=== PATIENT | female | born 1935 | race Caucasian/White ===

== ENCOUNTER 2019-04-18 04:50 | Emergency (ER) | payer MEDICARE ==
[~2019-04-18] VITALS: Ht 167.6 cm; Wt 95.7 kg
[~2019-04-18 04:50] MED LIST: ADVAIR 100-501 EACH PO; ALLEGRA180 MG PO; ASPIR 8181 MG PO; ASPIRIN EC81 MG PO; CIMETIDINE400 MG PO; CLONIDINE HCL0.1 MG PO; DIOVAN HCT 1601 EAC1 PO; DIOVAN160 MG PO; FUROSEMIDE20 MG; HYDRALAZINE HCL10 MG PO; HYDROCHLOROTHIA25 MG PO; LANTUS100 UNITS/ SQ; LORAZEPAM0.5 MG PO; LOSARTAN POTAS100 MG PO; METOPROLOL SUCC50 MG PO; MUCINEX600 MG PO; NOVOLOG100 UNITS/ SQ; PROAIR HFA INH8.5 GM; REMI; TYLENOL EXTRA500 MG PO; VITAMIN D1000 UNI1 PO; ZYRTEC10 MG PO
--- OUTSIDE RECORDS SUMMARY | 2019-04-18 04:53 | XMS REPORT ---
Author Author [facility] Address Unknown Phone Unavailable Care Team Providers Care Ladle Pourer Name Role Phone DAVID SHAH Unavailable Unavailable Problems This patient has no known problems. Allergies, Adverse Reactions, Alerts This patient has no known allergies or adverse reactions. Medications This patient has no known medications. Results Test Description Test Time Test Comments Text Results Atomic Results Result Comments CHEST SINGLE (PORTABLE) [place] [address] Patient Name: STEVE HOLT MR #: [id number] : 1935 Age/Sex: 81/F Req #: [id number] Adm Physician: DAVID SHAH MD Ordered by: SNOIA GLASS MD Report #: [id number] Location: [facility] Room/Bed: [place] [address] Procedure: [id number] DX/CHEST SINGLE (PORTABLE) Exam Date: 04/09/17 Exam Time: 0515 REPORT STATUS: Signed EXAM: CHEST SINGLE (PORTABLE), AP 1 view DATE: 04/09/2017 5:00 AM Time stamp on exam: 0538 hours INDICATION: CHF COMPARISON: None FINDINGS: LINES/TUBES: None LUNGS: No consolidations or edema. PLEURA: No effusions or pneumothorax. HEART AND MEDIASTINUM: Normal size and contour. BONES AND SOFT TISSUES: No acute findings. Degenerative changes of the bilateral acromioclavicular joints. IMPRESSION: No acute thoracic abnormality. Signed by: Dr. Hayes Ford M.D. on 04/09/2017 6:25 AM Dictated By: HAYES FORD MD 4 Transcribed By: BYRON on 04/09/17624 COPY TO: SONIA GLASS MD CT ABDOMEN/PELVIS WO [place] [address] Patient Name: STEVE HOLT MR #: [id number] : 1935 Age/Sex: 81/F Req #: [id number] Adm Physician: Ordered by: VESTA DA SILVA MD Report #: [id number] Location: ER Room/Bed: Procedure: [id number] CT/CT ABDOMEN/PELVIS WO Exam Date: 04/02/17 Exam Time: 2225 REPORT STATUS: Signed EXAM: CT Abdomen and Pelvis WITHOUT contrast INDICATION: Large, incarcerated right lower abdominal incisional hernia/strangulation COMPARISON: None. TECHNIQUE: Abdomen and pelvis were scanned utilizing a multidetector helical scanner from the lung base to the pubic symphysis without administration of IV contrast. Absence of intravenous contrast decreases sensitivity for detection of focal lesions and vascular pathology. C oronal and sagittal reformations were obtained. Routine protocol was performed. IV CONTRAST: None. ORAL CONTRAST: Gastrografin RADIATION DOSE: Total DLP: 661.96 mGy*cm Estimated effective dose: (DLP x 0.015 x size factor) mSv COMPLICATIONS: None FINDINGS: LINES and TUBES: None. LOWER THORAX: Unremarkable HEPATOBILIARY: The liver is diffuse hypodense compared to the spleen, consistent with diffuse hepatic diffuse hepatic steatosis. No focal hepatic lesions. No biliary ductal dilation. GALLBLADDER: There are cholecystectomy clips. SPLEEN: No splenomegaly. PANCREAS: No focal masses or ductal dilatation. ADRENALS: No adrenal nodules KIDNEYS/URETERS: No hydronephrosis. No cystic or solid mass lesions. No stones. GI TRACT: Distention of proximal small bowel loops with positive contrast which bridge the distal jejunum. There are at least 2 long segments of small bowel that appear to herniate through an anterior infraumbilical ventral hernia with a hernial neck measuring 3.5 x 2.8 cm. The small bowel loops contained within the ventral hernia are dilated, edematous and demonstrate free fluid within the hernial sac. Appendix is not clearly identified. There is however no fat stranding or adenopathy in the right lower quadrant to suggest appendicitis. PELVIC ORGANS/BLADDER: There are postop changes of hysterectomy and bilateral oophorectomies. LYMPH NODES: No lymphadenopathy. VESSELS: There is moderate atherosclerotic disease in the aorta and major arterial branches. PERITONEUM / RETROPERITONEUM: Fluid within the infraumbilical hernia sac is suspicious for vascular involvement of the hernia BONES: There are degenerative changes in the lumbar spine. SOFT TISSUES: Unremarkable. IMPRESSION: 1. Findings in the infraumbilical ventral hernia containing small bowel loops suggestive of incarceration/strangulation. Surgical consult is recommended. 2. Hepatic steatosis. Signed by: Dr. Al Ricks M.D. on 04/02/2017 10:44 PM Dictated By: AL ENRIQUE MD Transcribed By: BYRON on 04/02/172243 COPY TO: VESTA DA SILVA MD
--- NOTE | 2019-04-18 06:06 | Diagnostic Imaging Report ---
WRIST COMPLETE LEFT - 3 views HISTORY: Pain COMPARISON: None available. FINDINGS: Impacted distal radial metaphyseal fracture with mild dorsal angulation. Questionable nondisplaced fracture of the ulnar styloid process, seen only on one view. Mild soft tissue swelling. Vascular calcifications. IMPRESSION: Impacted distal radial metaphyseal fracture with mild dorsal angulation. Questionable nondisplaced fracture of the ulnar styloid process, seen only on one view. Signed by: Dr. Paolo Hester MD on 04/18/2019 6:02 AM
[2019-04-24] MEDS ORDERED: AMLODIPINE BESYL5 MG PO (16:50)
[2019-04-24] MEDS ORDERED: SPIRONOLACTONE25 MG PO (16:50)
[2019-04-24] MEDS ORDERED: [UNRECOGNIZED DRUG - OTHER] PO (16:50)
[2019-04-24] MEDS ORDERED: HUMALOG100 UNIT/1 SQ (16:50)
[2019-04-24] MEDS ORDERED: [UNRECOGNIZED DRUG - OTHER] OU (16:56)
[2019-04-24] MEDS ORDERED: KETOROLAC60 MG/2 ML OD (16:56)
[2019-04-24] MEDS ORDERED: REFRESH OPTIVE15 ML OD (16:56)
[2019-04-24] MEDS ORDERED: SYSTANE BALANCE10 ML OU (16:56)
[2019-04-24] MEDS ORDERED: LUMIGAN2.5 M1 OU (16:56)
== END 2019-04-18 06:45 | disposition home or self-care (01) ==
LOC: ER 04:50
DX: S52.92XA Unspecified fracture of left forearm, initial encounter for closed fracture (principal); W18.11XA Fall from or off toilet without subsequent striking against object, initial encounter; Y92.002 Bathroom of unspecified non-institutional (private) residence as the place of occurrence of the external cause; I10 Essential (primary) hypertension; E11.9 Type 2 diabetes mellitus without complications; J44.9 Chronic obstructive pulmonary disease, unspecified; K21.9 Gastro-esophageal reflux disease without esophagitis
CPT/HCPCS: 99283

== ENCOUNTER → 2019-04-25 | Day surgery (SDC) | payer MEDICARE ==
[2019-04-24 11:43] LABS: BASOPHILS % 0.3 % (0.0-1.0); EOSINOPHILS # (AUTO) 0.1 (0.0-0.4); EOSINOPHILS % 1.5 % (0.0-6.0); HEMATOCRIT 40.9 % (34.2-44.1); LYMPHOCYTES # (AUTO) 2.4 (1.0-3.2); LYMPHOCYTES % 24.9 % (18.0-39.1); MEAN CORPUSCULAR HEMOGLOBIN 29.5 pg (28-32); MEAN CORPUSCULAR HGB CONC 31.8 g/dL (31-35); MONOCYTES # (AUTO) 0.9 (0.2-0.8); MONOCYTES % 9.4 % (4.4-11.3); NEUTROPHILS # (AUTO) 6.1 (2.1-6.9); NEUTROPHILS % 63.5 % (38.7-80.0); PLATELET COUNT 315 x10e3/uL (140-360); RED CELL DISTRIBUTION WIDTH 12.7 % (11.7-14.4)
[2019-04-24 12:01] LABS: ANION GAP 15.9 mmol/L (8-16); CREATININE, SERUM 1.1 mg/dL (0.57-1.11); POTASSIUM 3.9 mmol/L (3.5-5.1)
--- NOTE | 2019-04-24 12:16 | Diagnostic Imaging Report ---
Chest, 2 views, 04/24/2019. History: Preop, arm fracture. Comparison: None available. Findings: The cardiomediastinal silhouette and pulmonary vasculature are within normal limits. The lungs are clear without evidence of consolidation or pleural effusion. Degenerative changes are noted throughout the thoracic spine. There are no acute osseous or soft tissue abnormalities. Impression: No acute cardiopulmonary abnormality. Signed by: Douglas Sawant on 04/24/2019 12:13 PM
[~2019-04-25] MED LIST changes: +ACETAMINOPHEN 1000 MG/100 ML IV ONE; +AMLODIPINE BESYL5 MG PO; +BUPIVACAINE HCL 0.5% INJ 30 ML VIAL INJ ONE; +CEFAZOLIN SOD 1 GM/NS 50ML 100 ML IV ONE; +DEXAMETHASONE SOD PHOS INJ 4 MG/ML VIAL ONE; +FENTANYL CITRATE/PF 100MCG/2 ML INJ ONE; +HUMALOG100 UNIT/1 SQ; +HYDROCODONE/APAP 5MG-325MG TAB ONE; +KETOROLAC60 MG/2 ML OD; +LIDOCAINE HCL 2% LOCAL INJ 5 ML SDV VIAL INJ ONE; +LUMIGAN2.5 M1 OU; +MORPHINE SULFATE 2 MG/ML SYR 1ML ONE; +ONDANSETRON HCL INJ 2MG/ML 2ML 2 MG/ML VIAL ONE; +PROPOFOL IV EMULSION 10 MG/ML 20 ML VIAL ONE; +REFRESH OPTIVE15 ML OD; +SEVOFLURANE INHAL SOLN 250 ML PEN BTL ONE; +SPIRONOLACTONE25 MG PO; +SYSTANE BALANCE10 ML OU; +[UNRECOGNIZED DRUG - OTHER] OU; +[UNRECOGNIZED DRUG - OTHER] PO
[2019-04-25 12:20] VITALS: BP 162/81
--- NOTE | 2019-04-25 12:30 | NUR ---
ORTHOPEDICS OPERATIVE NOTE OPERATIVE NOTE ORTHOPEDICS . PREOPERATIVE DIAGNOSIS: LEFT Displaced distal radius fracture POSTOPERATIVE DIAGNOSIS: LEFT Displaced distal radius fracture OPERATIONS PERFORMED: Open reduction and internal fixation of LEFT distal radius SURGEON: Kellee Roy DO ANESTHESIA: General EBL: 15cc TOURNIQUET TIME: 68 Min COMPLICATIONS: None. COMPONENTS: Rosemarie Left Distal Radius Short Narrow Plate, 2.3 Cortical Screw x 2, 2.3 Locking Screw x 5, 2.7 Bone Screw x 2 CLINICAL SUMMARY: The patient is a 83-year-old right-hand dominant female who sustained a mechanical fall resulting in a fracture to the left distal radius OPERATION: The patient was brought to the operating table and placed in supine position and administered general anesthetic by the anesthesia. Preoperative antibiotics were provided. Once adequate anesthesia had been obtained, the LEFT upper extremity was prepped and draped in the usual sterile manner. The patient received preoperative antibiotics. Tourniquet was placed around the right upper extremity. The upper extremity was then elevated and exsanguinated using an Esmarch dressing. The tourniquet was elevated to 250 mmHg. The entire operation was performed with loop magnification. At this time an approximately 8 cm longitudinal incision was then made overlying the right flexor carpi radialis tendon from the flexion crease to the wrist proximally. This was carried down to the flexor carpi radialis, which was then retracted ulnarly. The floor of the flexor carpi radialis sheath was then incised exposing the flexor pronator muscles. The flexor pollicis longus was retracted ulnarly and the remnants of the pronator quadratus was longitudinally incised 1 cm from its origin. It was then elevated off of the fracture site exposing the fracture site, which was dorsally displaced and shortened. This was an 2-part fracture. Under image control, the two pieces were then carefully manipulated and reduced. D K-wires were used to temporarily hold the reduction. The fracture ends were copiously irrigated with normal saline and curetted and then the fracture was reduced in the usual fashion by recreating the defect and distracting it. Further K-wires were then placed through the radial styloid into the proximal fragment. above mentioned plate for the LEFT wrist was then fashioned over and placed over the distal radius and secured with 4 K-wires. The above mentioned screws were used to fixate the plate on to the bone under fluoroscopic interpretation. Care was used to avoid intraarticular penetration while maintaining subchondral support which was verified via flouroscopy. Images were obtained and interpreted by me demonstrating adequate reduction of the fragments and the fracture with hardware in appropriate alignment. The incision was thoroughly irrigated and homeostasis was maintained with electrocautery. The volar carpal ligaments were repaired and the remnants of the pronator quadratus were repair. The subcutaneous tissue was closed with a 3-0 vicryl and the skin was closed with a 3-0 monocryl. The skin was cleaned and steristrips with xeroform were placed over the incision. Through the use of an angiocatch, 10 cc of local anesthetic was placed within the incision. 4x4, Cling were used and a short arm was placed over the arm. The patient was then placed in a sling. The tourniquet was let down at 68 minutes. The fingers were immediately pink. The patient was awakened and taken to the recovery room in good condition. There were no operative complications. The patient tolerated the procedure well. Post operatively, the patient was examined and found to be neurovascularly intact.
== END | disposition home or self-care (01) ==
LOC: OR 08:18
PROVIDERS: ATTEND Orthopaedic Surgery
DX: S52.532A Colles' fracture of left radius, initial encounter for closed fracture (principal); Z88.8 Allergy status to other drugs, medicaments and biological substances; J44.9 Chronic obstructive pulmonary disease, unspecified; K21.9 Gastro-esophageal reflux disease without esophagitis; E11.22 Type 2 diabetes mellitus with diabetic chronic kidney disease; I12.9 Hypertensive chronic kidney disease with stage 1 through stage 4 chronic kidney disease, or unspecified chronic kidney disease; N18.9 Chronic kidney disease, unspecified; G62.9 Polyneuropathy, unspecified; Z01.810 Encounter for preprocedural cardiovascular examination; Z01.812 Encounter for preprocedural laboratory examination; Z01.811 Encounter for preprocedural respiratory examination; Z79.82 Long term (current) use of aspirin; Z79.84 Long term (current) use of oral hypoglycemic drugs
CPT/HCPCS: 25607; 36415 ×2; 71046; 80048; 82948; 85025; 93005; C1713 ×8; J0131; J0690; J1100; J2001; J2270; J2405; J2704; J3010

== ENCOUNTER 2019-05-28 14:41 | Outpatient (RCR) | payer MEDICARE ==
[~2019-05-28 14:41] MED LIST changes: -ACETAMINOPHEN 1000 MG/100 ML IV ONE; -BUPIVACAINE HCL 0.5% INJ 30 ML VIAL INJ ONE; -CEFAZOLIN SOD 1 GM/NS 50ML 100 ML IV ONE; -DEXAMETHASONE SOD PHOS INJ 4 MG/ML VIAL ONE; -FENTANYL CITRATE/PF 100MCG/2 ML INJ ONE; -HYDROCODONE/APAP 5MG-325MG TAB ONE; -LIDOCAINE HCL 2% LOCAL INJ 5 ML SDV VIAL INJ ONE; -MORPHINE SULFATE 2 MG/ML SYR 1ML ONE; -ONDANSETRON HCL INJ 2MG/ML 2ML 2 MG/ML VIAL ONE; -PROPOFOL IV EMULSION 10 MG/ML 20 ML VIAL ONE; -SEVOFLURANE INHAL SOLN 250 ML PEN BTL ONE
== END 2019-06-01 ==
LOC: OT 14:41
PROVIDERS: ATTEND Orthopaedic Surgery
DX: S52.502D Unspecified fracture of the lower end of left radius, subsequent encounter for closed fracture with routine healing (principal); M25.532 Pain in left wrist; M25.632 Stiffness of left wrist, not elsewhere classified; M25.642 Stiffness of left hand, not elsewhere classified; R53.1 Weakness

== ENCOUNTER 2024-07-31 10:38 | Outpatient (RCR) | payer MEDICARE ==
[~2024-07-31 10:38] MED LIST changes: +LIDOCAINE VISC 2% SOLN 15 ML UDC ONE; +LIDOCAINE/PRILOCAINE 2.5-2.5% KIT ONE; +MINERAL OIL/PETROLAT/GLYCERI 6OZ BTL ONE
[2024-07-31] MEDS ORDERED: LIDOCAINE VISC 2% SOLN 15 ML UDC ONE (15:37)
[2024-07-31] MEDS ORDERED: LIDOCAINE/PRILOCAINE 2.5-2.5% KIT ONE (15:37)
== END 2024-08-02 ==
LOC: WCC 10:38
PROVIDERS: ATTEND Nurse Practitioner Family
DX: I87.312 Chronic venous hypertension (idiopathic) with ulcer of left lower extremity (principal); L97.821 Non-pressure chronic ulcer of other part of left lower leg limited to breakdown of skin; R60.0 Localized edema

== ENCOUNTER 2024-08-28 09:49 | Outpatient (RCR) | payer MEDICARE ==
[~2024-08-28 09:49] MED LIST changes: -LIDOCAINE/PRILOCAINE 2.5-2.5% KIT ONE; -MINERAL OIL/PETROLAT/GLYCERI 6OZ BTL ONE
== END 2024-08-30 ==
LOC: WCC 09:49
PROVIDERS: ATTEND Nurse Practitioner Family
DX: I87.312 Chronic venous hypertension (idiopathic) with ulcer of left lower extremity (principal); L97.821 Non-pressure chronic ulcer of other part of left lower leg limited to breakdown of skin; R60.0 Localized edema